=== PATIENT | male | born 1995 | race Caucasian/White ===

== ENCOUNTER 2020-10-10 11:06 | Emergency (ER) | payer OTHER, SELFPAY ==
--- NOTE | ~2020-10-10 | CT_ITS ---
EXAMINATION: CT BRAIN AND CT CERVICAL SPINE WITHOUT CONTRAST. CLINICAL INFORMATION: Status post head injury with headaches at work. COMPARISON: None TECHNIQUE: 5 mm thin axial and reformatted 2 mm thin sagittal and coronal images of brain were obtained. Subsequently axial 3 mm thin and reformatted 2 mm thin sagittal and coronal images of cervical spine were obtained. DLP 1115 mGy/cm. FINDINGS: BRAIN: There is no acute intra-axial, extra-axial bleed, masses, collection or midline shift. There is no acute infarction in evolution. The lateral ventricles are symmetrical in size and configuration but not enlarged. The sampson to white matter differentiation is maintained normal. There is no edema. Bone windows reveal no calvarial abnormality. There is no scalp soft tissue abnormality. Bilateral paranasal sinuses and mastoid air cells are well-aerated. CERVICAL SPINE: There is mild straightening of cervical lordosis. The vertebral heights, alignment and disc heights are normal. The craniovertebral junction and the C1-C2 alignment is normal. There is no visible acute fracture, dislocation or subluxation seen. The prevertebral and paravertebral soft tissues. The thyroid lobes are symmetrical. The airway is widely patent. CT/CT head/brain wo con IMPRESSION: No acute intracranial process seen. Mild straightening of cervical lordosis likely spasm. No visible acute fracture, dislocation or subluxation seen.
--- NOTE | ~2020-10-10 | CT_ITS ---
EXAMINATION: CT BRAIN AND CT CERVICAL SPINE WITHOUT CONTRAST. CLINICAL INFORMATION: Status post head injury with headaches at work. COMPARISON: None TECHNIQUE: 5 mm thin axial and reformatted 2 mm thin sagittal and coronal images of brain were obtained. Subsequently axial 3 mm thin and reformatted 2 mm thin sagittal and coronal images of cervical spine were obtained. DLP 1115 mGy/cm. FINDINGS: BRAIN: There is no acute intra-axial, extra-axial bleed, masses, collection or midline shift. There is no acute infarction in evolution. The lateral ventricles are symmetrical in size and configuration but not enlarged. The sampson to white matter differentiation is maintained normal. There is no edema. Bone windows reveal no calvarial abnormality. There is no scalp soft tissue abnormality. Bilateral paranasal sinuses and mastoid air cells are well-aerated. CERVICAL SPINE: There is mild straightening of cervical lordosis. The vertebral heights, alignment and disc heights are normal. The craniovertebral junction and the C1-C2 alignment is normal. There is no visible acute fracture, dislocation or subluxation seen. The prevertebral and paravertebral soft tissues. The thyroid lobes are symmetrical. The airway is widely patent. CT/CT cervical spine wo con IMPRESSION: No acute intracranial process seen. Mild straightening of cervical lordosis likely spasm. No visible acute fracture, dislocation or subluxation seen.
[2020-10-10 12:31] VITALS: BP 125/90; PULSE 64; RESP 18; TEMP 36.7; O2SAT 100; BMI 23.6
[2020-10-10] MEDS: traMADoL HCL 50 MG TABLET PO (13:08)
--- NOTE | 2020-10-10 14:00 | ED.HEATRA ---
HPI - Head Injury General Chief complaint: Head Injury Stated complaint: HEAD INJ WORK REALTED Time Seen by Provider: 10/10/20 12:43 Source: patient Mode of arrival: ambulatory Limitations: no limitations History of Present Illness HPI Narrative: 25-year-old male presenting to the ED with complaints of a headache and right-sided neck pain after he was at work and 1 of his coworkers accidentally dropped a metal lift on his head prior to arrival. He reports he did not lose consciousness. Reports that he is not on any blood thinners. Reports that he has a headache and he had an episode of vomiting otherwise his nausea/vomiting has resolved. Denies any other symptoms complaints or concerns at this time. MD Complaint: head injury and head pain Onset (ago): minute(s) (Prior to arrival) Mechanism of Injury: work related injury Place: work Loss of Consciousness: no Location of injury: parietal and occipital Severity: moderate Quality: aching Radiation: neck Other Injuries: none Associated symptoms: nausea, vomiting, neck pain and other (Headache) Related Data Previous Rx's Medication Instructions Recorded acetaminophen [Tylenol Extra 1,000 mg PO QID PRN #14 tab 10/10/20 Strength] cyclobenzaprine 10 mg PO Q8H #10 tab 10/10/20 tramadol 50 mg PO BID PRN #14 tab 10/10/20 Allergies Allergy/AdvReac Type Severity Reaction Status Date / Time bee pollen [bee stings] Allergy Swelling Verified 10/10/20 12:35 Review of Systems Review of Systems: Constitutional : No changes in activity, No lethargy, No recent prior head injury, No agitation, No increased fussiness ENT/Mouth : No Ear Pain, No Nasal discharge/drainage Eyes: No Eye Pain, No Swelling, No Redness, No Foreign Body, No Vision Changes Cardiovascular : No Chest Pain, No SOB Respiratory : No Cough Gastrointestinal : No Nausea, No Vomiting, No abdominal Pain Genitourinary : No Dysuria, No Urinary Frequency, No Urinary Incontinence, No Urgency, No Flank Pain Musculoskeletal : + Neck pain, No joint pain, No neck stiffness, No back pain/injury Skin : No lacerations Neuro : + Head injury c headache, No unsteady gait, No Paresthesias, No Loss of Consciousness, No altered mental status Yes all other systems are reviewed and are negative PMFSH Past Medical History Attestation statement: The following information was validated with the patient. Medical History No known health problems Social History Social History Advance Directives: No Advance Directives Information Provided: No Physical Exam Vital Signs: Vital Signs: Last Vital Signs Temp 98.1 F 10/10/20 12:31 Pulse 64 10/10/20 12:31 Resp 18 10/10/20 12:31 BP 125/90 H 10/10/20 12:31 Pulse Ox 100 10/10/20 12:31 Body Mass Index 23.6 Vital signs have been reviewed as normal and appeared to be correct. Blood pressure normal. Heart rate normal. Respiration rate normal. Temperature normal. Oxygen saturation normal. Appearance: Alert. Oriented X3. No acute distress. Head: Normal external exam. Normocephalic. Atraumatic. Able to rotate head bilaterally. Eyes: PERRLA. EOMI. No nystagmus noted. Conjunctiva and sclera normal. Eyelids normal. Corneal reflex normal. ENT: EAC normal. TM's Normal. Hearing normal. Pharynx normal. Uvula midline. tongue midline. Moist mucous membranes. No trismus noted. No drooling noted. No muffled voice noted. Neck: Normal inspection. Neck supple. FROM. No adenopathy. Thyroid Normal. No meningeal signs. No neck mass noted. Patient with tenderness to palpation to right paracervical musculature. No midcervical tenderness step-offs or deformities noted. Patient is neuro intact bilaterally distally in all 4 extremities. Reflexes intact bilaterally and distally on all 4 extremities. No lacerations/ecchymosis/abrasions or signs of infection noted. CVS: Normal heart rate and rhythm. Heart sound normal. No murmurs noted. Pulses normal throughout. Respiratory: No respiratory distress. Painless inspiration. Breath sounds normal. No wheezes/rales/rhonchi noted. Chest nontender. No accessory muscle usage noted or decreased air movement noted. Back: Full range of motion noted. Skin: Skin warm and dry. Normal skin color. Normal skin turgor. No rashes/lesions/lacerations noted. Extremities: Extremities exhibit normal range of motion. Extremities nontender. Able to shrug shoulders bilaterally and keep up against resistance. Neuro: Oriented X 3. No motor deficit. No sensory deficit. Reflexes normal. Moving all extremities. No focal motor deficits. Cranial nerves II-XI intact bilaterally. Facial strength normal. Normal cognition. Speech normal. Gait normal. Strength 5/5 throughout. No pronator drift. No tremor noted. No fasciculations noted. Muscle tone normal throughout. No asterixis noted. Course Course Course Narrative: CT scan of brain/cervical spine revealed chronic changes in the muscle spasm otherwise no other acute processes are noted. Will DC home with symptomatic treatment along with instructions return if any new or worsening symptoms and to follow up with primary care provider. Patient understands agrees with this plan. MDM - Head Injury MDM Narrative Medical decision making narrative: 25-year-old male presenting to the ED with complaints of a headache and right-sided neck pain after all work related injury with head injury no loss of consciousness not on any blood thinners. - on exam patient is alert and oriented x3. Not in any acute distress. Vital signs are stable within normal limits. No focal neuro deficits are noted. No obvious signs of trauma. Patient has full range of motion of the neck in all extremities. Has a normal steady gait. - will obtain a CT scan of brain and cervical spine provide symptomatic treatment and re-evaluate. Medical Records Attestation: I reviewed the patient's medical records. Imaging Data CT scan of brain/cervical spine: Attestation: I personally reviewed and interpreted this imaging study as follows: Radiologist's impression: FINDINGS: BRAIN: There is no acute intra-axial, extra-axial bleed, masses, collection or midline shift. There is no acute infarction in evolution. The lateral ventricles are symmetrical in size and configuration but not enlarged. The sampson to white matter differentiation is maintained normal. There is no edema. Bone windows reveal no calvarial abnormality. There is no scalp soft tissue abnormality. Bilateral paranasal sinuses and mastoid air cells are well-aerated. CERVICAL SPINE: There is mild straightening of cervical lordosis. The vertebral heights, alignment and disc heights are normal. The craniovertebral junction and the C1-C2 alignment is normal. There is no visible acute fracture, dislocation or subluxation seen. The prevertebral and paravertebral soft tissues. The thyroid lobes are symmetrical. The airway is widely patent. CT/CT cervical spine wo con IMPRESSION: No acute intracranial process seen. Mild straightening of cervical lordosis likely spasm. No visible acute fracture, dislocation or subluxation seen. Discharge Plan Discharge Clinical Impression: Closed head injury, Concussion without loss of consciousness, Cervical strain Patient Disposition: Home, Self-Care Instructions: Cervical Strain (ED), Concussion (ED) Prescriptions: New cyclobenzaprine 10 mg tablet 10 mg PO Q8H Qty: 10 RF: 0 tramadol 50 mg tablet 50 mg PO BID PRN (Reason: pain) Qty: 14 RF: 0 acetaminophen [Tylenol Extra Strength] 500 mg tablet 1,000 mg PO QID PRN (Reason: fever or pain) Qty: 14 RF: 0 Referrals: [facility] [Provider Group] - 1 day (Follow-up with [facility] today or tomorrow) Stand Alone Forms: Work/School Release Print Language: Citizen Of [place]
== END 2020-10-10 14:33 | disposition home or self-care (01) ==
PROVIDERS: Emergency Provider Emergency Medicine Emergency Medical Services
DX: S06.0X0A Concussion without loss of consciousness, initial encounter (principal); S16.1XXA Strain of muscle, fascia and tendon at neck level, initial encounter; W20.8XXA Other cause of strike by thrown, projected or falling object, initial encounter; Y93.89 Activity, other specified; Y92.69 Other specified industrial and construction area as the place of occurrence of the external cause; Y99.0 Civilian activity done for income or pay
CPT/HCPCS: 70450; 72125; 99283; 99284